=== PATIENT | female | born 1975 | race Hispanic/Latino ===

== ENCOUNTER 2017-09-28 09:21 | Inpatient (IN) | payer MEDICARE ==
[~2017-09-28] VITALS: Ht 162.6 cm; Wt 77.4 kg
[~2017-09-28 09:21] MED LIST: HYDR12.530 PO; LEVO75TA6 PO
[2017-09-28 09:45] LABS: APPEARANCE,URINE Cloudy (CLEAR); BILIRUBIN,URINE Negative (NEGATIVE); COLOR,URINE Yellow (YELLOW); GLUCOSE, URINE (UA) Negative (NEGATIVE); KETONES,URINE Negative (NEGATIVE); LEUKOCYTE ESTERASE ,URINE Trace (NEGATIVE); NITRATE,URINE Negative (NEGATIVE); OCCULT BLOOD,URINE Small (NEGATIVE); PH,URINE 5.5 (5.0-8.0); PROTEIN,URINE Trace (NEGATIVE)
[2017-09-28] MEDS ORDERED: SODIUM CHLORIDE 0.9% 1000ML 1,000 ML IV ONE (10:03)
[2017-09-28] MEDS ORDERED: ONDANSETRON HCL MDV 20ML 2 MG/ML VIAL ONE (10:03)
[2017-09-28] MEDS ORDERED: TAMSULOSIN HCL 0.4 MG CAP.ER.24H ONE (10:03)
[2017-09-28] MEDS ORDERED: MORPHINE SULFATE 4 MG/1ML SYG ONE ×3 (10:04→16:20)
[2017-09-28 10:08] LABS: BASOPHILS % (AUTO) 0.8 % (0.0-5.0); EOSINOPHILS % (AUTO) 2.8 % (0.0-8.0); HEMATOCRIT 40.7 % (36-48); LYMPHOCYTES % (AUTO) 22.8 % (21.0-51.0); MEAN CORPUSCULAR HEMOGLOBIN 29.6 pg (27.0-33.0); MEAN CORPUSCULAR HGB CONC 34.2 g/dL (32.0-36.0); MEAN CORPUSCULAR VOLUME 86.7 fL (79-99); MONOCYTES % (AUTO) 5.7 % (3.0-13.0); NEUTROPHILS % (AUTO) 67.9 % (40.0-77.0); PLATELET COUNT (AUTO) 320 K/uL (130-400); RED BLOOD CELL COUNT(AUTO) 4.69 MIL/uL (4.00-5.50); RED CELL DISTRIBUTION WIDTH 14.3 % (11.0-15.5); WHITE BLOOD COUNT (AUTO) 9.5 K/uL (4.8-10.8)
[2017-09-28 10:15] LABS: CREATININE 0.8 mg/dL (0.5-1.5); POTASSIUM 3.8 mmol/L (3.5-5.1)
[2017-09-28 10:20] LABS: ALBUMIN 3.7 g/dL (3.5-5.0); BILIRUBIN,TOTAL 0.2 mg/dL (0.2-1.0); TOTAL PROTEIN, SERUM 7.9 g/dL (6.0-8.3)
[2017-09-28 10:21] LABS: BACTERIA,URINE Few /HPF (None Seen)
[2017-09-28] MEDS ORDERED: HYDROMORPHONE HCL 0.5 MG/0.5 ML ML ONE (12:20)
[2017-09-28 17:09] VITALS: BP 134/71
[2017-09-28] MEDS ORDERED: MEPERIDINE HCL/PF 25 MG/0.5 ML AMPUL ONE (17:42)
[2017-09-28] MEDS ORDERED: MEPERIDINE HCL/PF 25 MG/0.5 ML AMPUL IVP PRN (17:45)
[2017-09-28] MEDS ORDERED: MORPHINE SULFATE 4 MG/1ML SYG IVP PRN (18:15)
[2017-09-28] MEDS ORDERED: ONDANSETRON HCL MDV 20ML 2 MG/ML VIAL IVP PRN (19:00)
[2017-09-28 20:00] VITALS: BP 120/67
[2017-09-28] MEDS: FAMOTIDINE/PF 20 MG/2 ML VIAL IV SCH (21:28)
[2017-09-28] MEDS: SODIUM CHLORIDE 0.9% 1000ML 1,000 ML IV SCH (21:28)
[2017-09-28] MEDS: HYDROMORPHONE HCL 0.5 MG/0.5 ML ML IVP PRN (21:41)
[2017-09-28 23:56] VITALS: BP 107/59
[2017-09-29] VITALS (7 sets, daily range): BP systolic 90–116; BP diastolic 44–67
[2017-09-29] MEDS ORDERED: ACETAMINOPHEN 325 MG TAB ONE (03:35)
[2017-09-29] MEDS: SODIUM CHLORIDE 0.9% 1000ML 1,000 ML IV SCH ×2 (04:55→20:30)
[2017-09-29] MEDS ORDERED: HYDRALAZINE HCL 20 MG/ML VIAL IV PRN (08:45)
[2017-09-29] MEDS: LEVOFLOXACIN 500 MG/D5W 100 ML 100 ML IV SCH (09:36)
[2017-09-29] MEDS: HYDROCHLOROTHIAZIDE 25 MG TABLET PO SCH (09:37)
[2017-09-29] MEDS: LEVOTHYROXINE 75 MCG TABLET PO SCH (09:37)
[2017-09-29] MEDS: FAMOTIDINE/PF 20 MG/2 ML VIAL IV SCH ×2 (09:37→20:26)
[2017-09-29] MEDS: ENOXAPARIN SODIUM 40 MG/0.4 ML SYRINGE SQ SCH (09:55)
[2017-09-29] MEDS: ACETAMINOPHEN 325 MG TAB PO PRN ×2 (11:02→20:29)
[2017-09-29] MEDS: HYDROMORPHONE HCL 0.5 MG/0.5 ML ML IVP PRN (15:24)
[2017-09-29 15:30] LABS: APPEARANCE,URINE Clear (CLEAR); BILIRUBIN,URINE Negative (NEGATIVE); COLOR,URINE Yellow (YELLOW); GLUCOSE, URINE (UA) Negative (NEGATIVE); KETONES,URINE Negative (NEGATIVE); LEUKOCYTE ESTERASE ,URINE Large (NEGATIVE); NITRATE,URINE Negative (NEGATIVE); OCCULT BLOOD,URINE Small (NEGATIVE); PH,URINE 7.5 (5.0-8.0); PROTEIN,URINE Negative (NEGATIVE)
[2017-09-29 15:39] LABS: BACTERIA,URINE Few /HPF (None Seen); MUCUS,URINE Rare LPF (None Seen); SQUAMOUS EPITHELIAL CELL,UR Few /HPF (0-2); WBC,URINE 26-50 /HPF (0-1)
[2017-09-30] MEDS: HYDROMORPHONE HCL 0.5 MG/0.5 ML ML IVP PRN ×2 (02:39→12:10)
[2017-09-30 04:00] VITALS: BP 115/66
[2017-09-30] MEDS: LEVOTHYROXINE 75 MCG TABLET PO SCH (06:30)
[2017-09-30 08:15] VITALS: BP 97/66
[2017-09-30] MEDS ORDERED: IOPAMIDOL-370 75 ML VIAL IV ONE (08:44)
[2017-09-30] MEDS: HYDROCHLOROTHIAZIDE 25 MG TABLET PO SCH (09:00)
[2017-09-30] MEDS: ENOXAPARIN SODIUM 40 MG/0.4 ML SYRINGE SQ SCH (09:00)
[2017-09-30] MEDS: LEVOFLOXACIN 500 MG/D5W 100 ML 100 ML IV SCH (10:17)
[2017-09-30] MEDS: FAMOTIDINE/PF 20 MG/2 ML VIAL IV SCH ×2 (10:21→20:15)
[2017-09-30 12:06] VITALS: BP 119/66
[2017-09-30] MEDS ORDERED: TAMSULOSIN HCL 0.4 MG CAP.ER.24H ONE (13:19)
[2017-09-30 16:18] VITALS: BP 115/67
[2017-09-30] MEDS ORDERED: BISACODYL 5 MG TABLET.DR PO ONE (16:21)
[2017-09-30] MEDS: ACETAMINOPHEN 325 MG TAB PO PRN (16:31)
[2017-09-30] MEDS ORDERED: PEG 3350/NA SULF,BICARB,CL/KCL 4000 ML SOLN PO ONE (18:15)
[2017-09-30 19:20] VITALS: BP 102/63
[2017-09-30] MEDS: BISACODYL 5 MG TABLET.DR PO SCH (20:15)
[2017-09-30] MEDS: SODIUM CHLORIDE 0.9% 1000ML 1,000 ML IV SCH (20:16)
[2017-10-01] VITALS (7 sets, daily range): BP systolic 106–125; BP diastolic 60–82
[2017-10-01] MEDS: ACETAMINOPHEN 325 MG TAB PO PRN (05:16)
[2017-10-01 05:50] LABS: HEMATOCRIT 35.4 % (36-48); MEAN CORPUSCULAR HEMOGLOBIN 30.5 pg (27.0-33.0); MEAN CORPUSCULAR VOLUME 87.2 fL (79-99); PLATELET COUNT (AUTO) 242 K/uL (130-400); RED BLOOD CELL COUNT(AUTO) 4.06 MIL/uL (4.00-5.50); RED CELL DISTRIBUTION WIDTH 14.5 % (11.0-15.5); WHITE BLOOD COUNT (AUTO) 10.8 K/uL (4.8-10.8)
[2017-10-01 05:59] LABS: CREATININE 0.7 mg/dL (0.5-1.5)
[2017-10-01 06:01] LABS: POTASSIUM 2.8 mmol/L (3.5-5.1)
[2017-10-01 06:23] LABS: BAND NEUTROPHILS % (MANUAL) 6 % (0-2); LYMPHOCYTES % (MANUAL) 9 % (22-44); MAN.DIFF COMMENT-IMPRESSION MANUAL DIFFERENTIAL; MONOCYTES % (MANUAL) 9 % (2-9); PLATELET MORPHOLOGY COMMENT ADEQUATE; SEGMENTED NEUTROPHILS % 76 % (40-70)
[2017-10-01] MEDS: LEVOTHYROXINE 75 MCG TABLET PO SCH (06:42)
[2017-10-01] MEDS ORDERED: POTASSIUM CHLORIDE 20 MEQ ERTAB PO PRN (06:45)
[2017-10-01] MEDS ORDERED: POTASSIUM CHLORIDE 20MEQ/100ML 100 ML IV PRN ×2 (06:45)
[2017-10-01] MEDS ORDERED: LIDOCAINE HCL-MPF 1% 2ML VIAL IVP PRN ×2 (06:45)
[2017-10-01] MEDS ORDERED: POTASSIUM CHLORIDE 10% ELIXIR 20 MEQ/15 ML UDCUP PO PRN ×2 (06:45)
[2017-10-01] MEDS: TAMSULOSIN HCL 0.4 MG CAP.ER.24H PO SCH (09:07)
[2017-10-01] MEDS: BISACODYL 5 MG TABLET.DR PO SCH ×2 (09:07→20:44)
[2017-10-01] MEDS: POTASSIUM CHLORIDE 20 MEQ ERTAB PO PRN ×6 (09:08→23:58)
[2017-10-01] MEDS: FAMOTIDINE/PF 20 MG/2 ML VIAL IV SCH ×2 (09:09→20:44)
[2017-10-01] MEDS: HYDROCHLOROTHIAZIDE 25 MG TABLET PO SCH (09:09)
[2017-10-01] MEDS: LEVOFLOXACIN 500 MG/D5W 100 ML 100 ML IV SCH (09:10)
[2017-10-01] MEDS: ENOXAPARIN SODIUM 40 MG/0.4 ML SYRINGE SQ SCH (09:24)
[2017-10-01] MEDS ORDERED: TAMS-1 PO (15:49)
[2017-10-01] MEDS ORDERED: LEVO500T2 PO (15:49)
[2017-10-01] MEDS: SODIUM CHLORIDE 0.9% 1000ML 1,000 ML IV SCH (21:40)
[2017-10-02] VITALS (24 sets, daily range): BP systolic 103–138; BP diastolic 61–85
[2017-10-02] MEDS: SODIUM CHLORIDE 0.9% 1000ML 1,000 ML IV SCH ×2 (04:30→14:30)
[2017-10-02 05:18] LABS: BASOPHILS % (AUTO) 0.6 % (0.0-5.0); EOSINOPHILS % (AUTO) 2.1 % (0.0-8.0); HEMATOCRIT 36.4 % (36-48); LYMPHOCYTES % (AUTO) 20.2 % (21.0-51.0); MEAN CORPUSCULAR HEMOGLOBIN 30.2 pg (27.0-33.0); MEAN CORPUSCULAR HGB CONC 34.5 g/dL (32.0-36.0); MEAN CORPUSCULAR VOLUME 87.6 fL (79-99); MONOCYTES % (AUTO) 11.1 % (3.0-13.0); PLATELET COUNT (AUTO) 309 K/uL (130-400); RED BLOOD CELL COUNT(AUTO) 4.15 MIL/uL (4.00-5.50); RED CELL DISTRIBUTION WIDTH 14.5 % (11.0-15.5); WHITE BLOOD COUNT (AUTO) 8.6 K/uL (4.8-10.8)
[2017-10-02 05:28] LABS: CREATININE 0.7 mg/dL (0.5-1.5); POTASSIUM 3.8 mmol/L (3.5-5.1)
[2017-10-02] MEDS: LEVOTHYROXINE 75 MCG TABLET PO SCH (05:28)
[2017-10-02 06:09] LABS: INR 0.93 (0.85-1.15); PARTIAL THROMBOPLASTIN TIME 30.4 SEC (26.3-35.5); PROTHROMBIN TIME 9.8 SEC (9.6-11.6)
[2017-10-02] MEDS: HYDROCHLOROTHIAZIDE 25 MG TABLET PO SCH (09:00)
[2017-10-02] MEDS: TAMSULOSIN HCL 0.4 MG CAP.ER.24H PO SCH (09:00)
[2017-10-02] MEDS: BISACODYL 5 MG TABLET.DR PO SCH ×2 (09:00→20:34)
[2017-10-02] MEDS: ENOXAPARIN SODIUM 40 MG/0.4 ML SYRINGE SQ SCH (09:00)
[2017-10-02] MEDS: FAMOTIDINE/PF 20 MG/2 ML VIAL IV SCH ×2 (10:09→20:33)
[2017-10-02] MEDS: LEVOFLOXACIN 500 MG/D5W 100 ML 100 ML IV SCH (10:09)
[2017-10-02] MEDS ORDERED: LACTATED RINGERS 1000ML 1,000 ML IV ONE (12:01)
[2017-10-02] MEDS ORDERED: GLYCOPYRROLATE 0.2 MG/ML 5 ML VIAL ONE (12:37)
[2017-10-02] MEDS ORDERED: NEOSTIGMINE 5MG/5ML SYR IV ONE (12:37)
[2017-10-02] MEDS ORDERED: LIDOCAINE PF 2% 5ML ABBOJECT ONE (12:37)
[2017-10-02] MEDS ORDERED: ONDANSETRON HCL 4 MG/2 ML VIAL ONE (12:37)
[2017-10-02] MEDS ORDERED: SUCCINYLCHOLINE 200MG/10ML SYR ONE (12:37)
[2017-10-02] MEDS ORDERED: DEXAMETHASONE SOD PHOSPHATE 10MG/ML 1ML VIAL ONE (12:37)
[2017-10-02] MEDS ORDERED: FENTANYL CITRATE PF 50 MCG/1 ML 2ML VIAL ONE ×3 (12:38→13:47)
[2017-10-02] MEDS ORDERED: MIDAZOLAM HCL 1 MG/ML 2ML VIAL ONE (12:38)
[2017-10-02] MEDS ORDERED: PROPOFOL 10 MG/ML 20ML VIAL IV ONE ×3 (12:38→13:38)
[2017-10-02] MEDS: CEFAZOLIN SODIUM 1 GM VIAL ONE ×2 (12:50→13:25)
[2017-10-02] MEDS ORDERED: ISOVUE-370 50ML VIAL IV ONE (13:04)
[2017-10-02] MEDS ORDERED: MEPERIDINE-PF 25 MG/ML SYG ONE ×3 (14:39→15:04)
[2017-10-02] MEDS ORDERED: KETOROLAC TROMETHAMINE 30MG/ML ONE (14:52)
[2017-10-02] MEDS ORDERED: PHARMACY COMMUNICATION MISC SCH (19:00)
[2017-10-02] MEDS ORDERED: PROMETHAZINE HCL 25 MG/ML 1ML AMPULE IM PRN (20:30)
[2017-10-02] MEDS ORDERED: MEPERIDINE-PF 50 MG/ML SYG IM PRN (20:30)
[2017-10-02] MEDS: HYDROMORPHONE HCL 0.5 MG/0.5 ML ML IVP PRN (22:09)
[2017-10-03 04:00] VITALS: BP 104/60
[2017-10-03 04:08] LABS: HEMATOCRIT 35.7 % (36-48); MEAN CORPUSCULAR HEMOGLOBIN 28.9 pg (27.0-33.0); MEAN CORPUSCULAR HGB CONC 33.2 g/dL (32.0-36.0); MEAN CORPUSCULAR VOLUME 87.1 fL (79-99); PLATELET COUNT (AUTO) 322 K/uL (130-400); RED CELL DISTRIBUTION WIDTH 14.1 % (11.0-15.5); WHITE BLOOD COUNT (AUTO) 12.4 K/uL (4.8-10.8)
[2017-10-03] MEDS: SODIUM CHLORIDE 0.9% 1000ML 1,000 ML IV SCH (04:19)
[2017-10-03 04:31] LABS: CREATININE 0.6 mg/dL (0.5-1.5)
[2017-10-03] MEDS: LEVOTHYROXINE 75 MCG TABLET PO SCH (05:56)
[2017-10-03 07:55] VITALS: BP 115/60
[2017-10-03] MEDS: HYDROMORPHONE HCL 0.5 MG/0.5 ML ML IVP PRN (09:08)
[2017-10-03] MEDS: TAMSULOSIN HCL 0.4 MG CAP.ER.24H PO SCH (09:09)
[2017-10-03] MEDS: FAMOTIDINE/PF 20 MG/2 ML VIAL IV SCH (09:09)
[2017-10-03] MEDS: BISACODYL 5 MG TABLET.DR PO SCH (09:09)
[2017-10-03] MEDS: ENOXAPARIN SODIUM 40 MG/0.4 ML SYRINGE SQ SCH (09:09)
[2017-10-03] MEDS: HYDROCHLOROTHIAZIDE 25 MG TABLET PO SCH (09:10)
[2017-10-03] MEDS: LEVOFLOXACIN 500 MG/D5W 100 ML 100 ML IV SCH (09:10)
[2017-10-03 11:49] VITALS: BP 117/77
== END 2017-10-03 13:51 | disposition home or self-care (01) | DRG 674 ==
LOC: EDH 09:21 → EDHIP 13:42 → OBSVTOIN 13:42 → EDHIP 14:16 → 3BH 17:04
PROVIDERS: ADMIT Family Medicine; ATTEND Family Medicine
PROC: BT1F1ZZ Fluoroscopy of Left Kidney, Ureter and Bladder using Low Osmolar Contrast (ICD-10-PCS; principal; 2017-10-02 13:02)
PROC: 0UT00ZZ Resection of Right Ovary, Open Approach (ICD-10-PCS; 2017-10-02 13:02)
PROC: 0WJH0ZZ Inspection of Retroperitoneum, Open Approach (ICD-10-PCS; 2017-10-02 13:02)
PROC: 0UT70ZZ Resection of Bilateral Fallopian Tubes, Open Approach (ICD-10-PCS; 2017-10-02 13:02)
PROC: 0T778DZ Dilation of Left Ureter with Intraluminal Device, Via Natural or Artificial Opening Endoscopic (ICD-10-PCS; 2017-10-02 13:02)
DX: N13.2 Hydronephrosis with renal and ureteral calculous obstruction (principal); E03.9 Hypothyroidism, unspecified; N83.209 Unspecified ovarian cyst, unspecified side; N39.0 Urinary tract infection, site not specified; Z87.442 Personal history of urinary calculi; I10 Essential (primary) hypertension; N73.6 Female pelvic peritoneal adhesions (postinfective); N83.201 Unspecified ovarian cyst, right side; Z90.710 Acquired absence of both cervix and uterus; Z87.440 Personal history of urinary (tract) infections; Z83.3 Family history of diabetes mellitus; Z80.49 Family history of malignant neoplasm of other genital organs; Z82.49 Family history of ischemic heart disease and other diseases of the circulatory system
CPT/HCPCS: 36415; 74018; 74176; 74400; 74420; 76770; 76856; 80048; 80053; 81001; 83605; 84132; 85025; 85027; 85610; 85730; 87040; 87088; 87186; 88302; 93005; A4218; A4344; C1758; C1769; C2617; J0330; J0690; J1100; J1170; J1650; J1885; J1956; J2001; J2175; J2250; J2270; J2405; J2704; J2710; J3010; J3480; J3490; J7030; J7120; Q9967

== ENCOUNTER 2017-10-16 05:30 | Observation (INO) | payer MEDICARE ==
[2017-10-15 12:53] LABS: HEMATOCRIT 39.3 % (36-48); MEAN CORPUSCULAR HEMOGLOBIN 29.2 pg (27.0-33.0); MEAN CORPUSCULAR HGB CONC 33.3 g/dL (32.0-36.0); MEAN CORPUSCULAR VOLUME 87.8 fL (79-99); PLATELET COUNT (AUTO) 379 K/uL (130-400); RED BLOOD CELL COUNT(AUTO) 4.48 MIL/uL (4.00-5.50); RED CELL DISTRIBUTION WIDTH 14.8 % (11.0-15.5); WHITE BLOOD COUNT (AUTO) 12.5 K/uL (4.8-10.8)
[2017-10-15 12:54] LABS: APPEARANCE,URINE Cloudy (CLEAR); BILIRUBIN,URINE Negative (NEGATIVE); COLOR,URINE Yellow (YELLOW); GLUCOSE, URINE (UA) Negative (NEGATIVE); KETONES,URINE Negative (NEGATIVE); LEUKOCYTE ESTERASE ,URINE Small (NEGATIVE); NITRATE,URINE Negative (NEGATIVE); OCCULT BLOOD,URINE Nonhemolyzed Trace (NEGATIVE); PH,URINE 5.5 (5.0-8.0); PROTEIN,URINE Trace (NEGATIVE)
[2017-10-15 12:56] VITALS: BP 115/64
[2017-10-15 13:01] LABS: CREATININE 0.6 mg/dL (0.5-1.5); POTASSIUM 3.8 mmol/L (3.5-5.1)
[2017-10-15 13:03] LABS: BACTERIA,URINE Few /HPF (None Seen); SQUAMOUS EPITHELIAL CELL,UR Moderate /HPF (0-2); WBC,URINE 0-1 /HPF (0-1)
[2017-10-15 13:08] LABS: INR 0.89 (0.85-1.15); PARTIAL THROMBOPLASTIN TIME 27.8 SEC (26.3-35.5); PROTHROMBIN TIME 9.4 SEC (9.6-11.6)
[2017-10-16] VITALS (27 sets, daily range): BP systolic 98–155; BP diastolic 52–76
[~2017-10-16] VITALS: Ht 162.6 cm; Wt 74.9 kg
[~2017-10-16 05:30] MED LIST changes: +TAMS-1 PO
[2017-10-16] MEDS ORDERED: LACTATED RINGERS 1000ML 1,000 ML IV ONE (05:52)
[2017-10-16] MEDS ORDERED: CEFAZOLIN SODIUM 1 GM VIAL ONE (05:52)
[2017-10-16] MEDS ORDERED: MIDAZOLAM HCL 1 MG/ML 2ML VIAL ONE (06:42)
[2017-10-16] MEDS ORDERED: LIDOCAINE PF 2% 5ML ABBOJECT ONE (06:42)
[2017-10-16] MEDS ORDERED: NEOSTIGMINE 5MG/5ML SYR IV ONE (06:42)
[2017-10-16] MEDS ORDERED: PROPOFOL 10 MG/ML 20ML VIAL IV ONE (06:42)
[2017-10-16] MEDS ORDERED: GLYCOPYRROLATE 0.2 MG/ML 5 ML VIAL ONE (06:42)
[2017-10-16] MEDS ORDERED: DEXAMETHASONE SOD PHOSPHATE 10MG/ML 1ML VIAL ONE (06:42)
[2017-10-16] MEDS ORDERED: FENTANYL CITRATE PF 50 MCG/1 ML 2ML VIAL ONE (06:42)
[2017-10-16] MEDS: CEFAZOLIN SODIUM 1 GM VIAL IVP ONE ×2 (06:45→09:05)
[2017-10-16] MEDS ORDERED: ISOVUE-370 50ML VIAL IV ONE (06:51)
[2017-10-16] MEDS ORDERED: LACTATED RINGERS 1000ML 1,000 ML IV SCH (08:00)
[2017-10-16] MEDS: SODIUM CHLORIDE 0.9% 1000ML 1,000 ML IV SCH ×2 (10:00→21:24)
[2017-10-16] MEDS: LEVOTHYROXINE 75 MCG TABLET PO SCH (10:00)
[2017-10-16] MEDS ORDERED: ACETAMINOPHEN 325 MG TAB PO PRN (10:15)
[2017-10-16] MEDS ORDERED: ONDANSETRON HCL 4 MG/2 ML VIAL IVP PRN (10:15)
[2017-10-16] MEDS ORDERED: MEPERIDINE-PF 75 MG/ML SYG IM PRN (10:15)
[2017-10-16] MEDS ORDERED: ACETAMINOPHEN-CODEINE 300/30MG TAB PO PRN (10:15)
[2017-10-16] MEDS: HYDROCHLOROTHIAZIDE 25 MG TABLET PO SCH (16:51)
[2017-10-16] MEDS: TAMSULOSIN HCL 0.4 MG CAP.ER.24H PO SCH (16:51)
[2017-10-16] MEDS: CEFAZOLIN SODIUM 1 GM VIAL IVP SCH ×2 (16:52→18:00)
[2017-10-17] MEDS: CEFAZOLIN SODIUM 1 GM VIAL IVP SCH (02:32)
[2017-10-17 03:52] VITALS: BP 118/60
[2017-10-17 05:05] LABS: BASOPHILS % (AUTO) 0.7 % (0.0-5.0); EOSINOPHILS % (AUTO) 0.5 % (0.0-8.0); HEMATOCRIT 34.8 % (36-48); LYMPHOCYTES % (AUTO) 14.4 % (21.0-51.0); MEAN CORPUSCULAR HGB CONC 32.7 g/dL (32.0-36.0); MEAN CORPUSCULAR VOLUME 88.5 fL (79-99); MONOCYTES % (AUTO) 6.2 % (3.0-13.0); NEUTROPHILS % (AUTO) 78.2 % (40.0-77.0); PLATELET COUNT (AUTO) 338 K/uL (130-400); RED BLOOD CELL COUNT(AUTO) 3.93 MIL/uL (4.00-5.50); RED CELL DISTRIBUTION WIDTH 14.8 % (11.0-15.5); WHITE BLOOD COUNT (AUTO) 15.2 K/uL (4.8-10.8)
[2017-10-17 05:21] LABS: CREATININE 0.7 mg/dL (0.5-1.5); POTASSIUM 3.3 mmol/L (3.5-5.1)
[2017-10-17] MEDS: LEVOTHYROXINE 75 MCG TABLET PO SCH (05:51)
[2017-10-17 08:00] VITALS: BP 116/78
[2017-10-17] MEDS ORDERED: INVANZ 1GM+NS 50ML IVPB 50 ML IV SCH (08:15)
[2017-10-17] MEDS ORDERED: MEROPENEM 1 GM VIAL IVP SCH (08:30)
[2017-10-17] MEDS: TAMSULOSIN HCL 0.4 MG CAP.ER.24H PO SCH (08:54)
[2017-10-17] MEDS: HYDROCHLOROTHIAZIDE 25 MG TABLET PO SCH (08:54)
== END 2017-10-17 11:00 | disposition home or self-care (01) ==
LOC: DAH 05:30 → DAHIP 05:31 → DAH 05:31 → 4CH 09:12
PROVIDERS: ADMIT Urology; ATTEND Urology
DX: N20.1 Calculus of ureter (principal); Z88.8 Allergy status to other drugs, medicaments and biological substances; Z90.49 Acquired absence of other specified parts of digestive tract; Z90.710 Acquired absence of both cervix and uterus
CPT/HCPCS: 36415 ×2; 52356; 71046; 74420; 80048 ×2; 81001; 82360; 85025; 85027; 85610; 85730; 87088; 88300; 93005; 96374; 96376; A4218 ×4; A4344; A4358; A4600; A4930; A5113; C1758; C1769; C2617; G0378 ×29; J0690 ×3; J1100; J1335; J2001; J2185; J2250; J2704; J2710; J3010; J3490; J7030; J7120 ×2; Q9967

== ENCOUNTER → 2021-08-30 | Outpatient (CLI) | payer MEDICARE | END | disposition home or self-care (01) | LOC: RAH 15:54 | PROVIDERS: ATTEND Internal Medicine | DX: R91.8 Other nonspecific abnormal finding of lung field (principal); I10 Essential (primary) hypertension; M47.815 Spondylosis without myelopathy or radiculopathy, thoracolumbar region | CPT/HCPCS: 71046 ==

== ENCOUNTER → 2022-10-12 | Outpatient (CLI) | payer OTHER | END | disposition home or self-care (01) | LOC: OIH 09:40 | PROVIDERS: ATTEND Internal Medicine | DX: Z13.6 Encounter for screening for cardiovascular disorders (principal) | CPT/HCPCS: 75571 ==

== ENCOUNTER → 2023-09-10 | Outpatient (CLI) | payer BC | END | disposition home or self-care (01) | LOC: RAH 09:40 | PROVIDERS: ATTEND Urology | DX: N20.0 Calculus of kidney (principal) | CPT/HCPCS: 74018; 76100 ==